=== PATIENT | male | born 1955 | race African-American/Black ===

== ENCOUNTER 2018-11-03 12:01 | Emergency (ER) | payer OTHER, MEDICARE ==
[2018-11-03] MEDS ORDERED: LIDOCAINE 2% VISCOUS SOLN 20 ML UDCUP PO ONE (13:08)
[2018-11-03] MEDS ORDERED: METOCLOPRAMIDE HCL ORAL SOLN 10 MG/10 ML UDCUP PO ONE (13:08)
[2018-11-03] MEDS ORDERED: MAG HYDROX/AL HYDROX/SIMETH SUSP 30 ML UDCUP PO ONE (13:08)
--- NOTE | 2018-11-03 13:14 | ER Document Report ---
ED General - General Chief Complaint: Abdominal Pain Stated Complaint: ABDOMINAL PAIN Time Seen by Provider: 11/03/18 13:03 Mode of Arrival: Ambulatory Information source: Patient Notes: 63-year-old male with hypertension, hyperlipidemia, type 1 diabetes, chronic back pain presents with epigastric and right upper quadrant abdominal pain that started 3 days prior to arrival. Patient currently is pain-free. Patient describes the pain is intermittent, spasm-like. Patient denies associated nausea, vomiting, chest pain, diaphoresis, shortness of breath. He denies any black or bloody stools. His last bowel movement was this morning. He denies any abdominal surgeries. He is having flatus. Patient was sent here from the [place] to assess for cholecystitis. TRAVEL OUTSIDE OF THE [place] IN LAST 30 DAYS: No - HPI Onset: Other Onset/Duration: Intermittent Quality of pain: No pain, Other - Spasm Associated symptoms: denies: Chest pain, Diarrhea, Fever, Nausea, Vomiting, Shortness of breath Exacerbated by: Food Relieved by: Denies Similar symptoms previously: No Recently seen / treated by doctor: Yes - [place] today - Related Data Allergies/Adverse Reactions: No Known Allergies Allergy (Verified 11/03/18 12:03) Past Medical History - General Information source: Patient, Relative, [facility] Records - Social History Smoking Status: Current Every Day Smoker Cigarette use (# per day): Yes - 5 Chew tobacco use (# tins/day): Yes Smoking Education Provided: Yes - Smoking cessation counseling was provided for 4 minutes at the bedside Frequency of alcohol use: Rare Drug Abuse: None Lives with: Spouse/Significant other Family History: Reviewed & Not Pertinent Patient has suicidal ideation: No Patient has homicidal ideation: No - Past Medical History Cardiac Medical History: Reports: Hx Hypercholesterolemia, Hx Hypertension Endocrine Medical History: Reports: Hx Diabetes Mellitus Type 1, Hx Diabetes Mellitus Type 2 Renal/ Medical History: Denies: Hx Peritoneal Dialysis Psychiatric Medical History: Reports: Hx Depression Past Surgical History: Reports: Hx Orthopedic Surgery - cervical - Immunizations Hx Diphtheria, Pertussis, Tetanus Vaccination: No Review of Systems - Review of Systems Notes: REVIEW OF SYSTEMS: CONSTITUTIONAL : Denies fever, chills, or sweats. Denies recent illness. Denies weight loss, recent hospitalizations. EENT: Denies visual changes, eye pain. Denies sore throat, oral lesions, difficulty swallowing. CARDIOVASCULAR: Denies chest pain. Denies palpitations. Denies lower extremity edema. RESPIRATORY: Denies cough. Denies shortness of breath, wheezing. GASTROINTESTINAL: Denies nausea, vomiting, or diarrhea. Denies blood in vomitus, stools, or per rectum. Denies black, tarry stools. Denies constipation. GENITOURINARY: Denies difficulty urinating, painful urination, frequency, blood in urine, testicular pain or penile discharge. MUSCULOSKELETAL: Denies back or neck pain or stiffness. Denies joint pain or swelling. SKIN: Denies rash, lesions or sores. HEMATOLOGIC : Denies easy bruising or bleeding. LYMPHATIC: Denies swollen glands. NEUROLOGICAL: Denies confusion or altered mental status. Denies loss of consciousness. Denies dizziness or lightheadedness. Denies headache. Denies weakness or paralysis. Denies problems difficulty with ambulation, slurred speech. Denies sensory loss, numbness, or tingling. Denies seizures. PSYCHIATRIC: Denies anxiety or stress. Denies depression, suicidal ideation, or Physical Exam - Vital signs Vitals: Temp Pulse Resp BP Pulse Ox 98.2 F 70 18 165/99 H 96 11/03/18 12:36 11/03/18 12:36 11/03/18 12:36 11/03/18 12:36 11/03/18 12:36 - Notes Notes: PHYSICAL EXAMINATION: GENERAL: Well-appearing, well-nourished and in no acute distress. HEAD: Atraumatic, normocephalic. EYES: Pupils equal round and reactive to light, extraocular movements intact, sclera anicteric, conjunctiva are normal. ENT: Nares patent, oropharynx clear without exudates. Moist mucous membranes. NECK: Normal range of motion, supple without lymphadenopathy LUNGS: Breath sounds clear to auscultation bilaterally and equal. No wheezes rales or rhonchi. HEART: Regular rate and rhythm without murmurs ABDOMEN: Soft, nontender, nondistended abdomen. No guarding, no rebound. No masses appreciated. Musculoskeletal: Normal range of motion, no pitting or edema. No cyanosis. NEUROLOGICAL: Cranial nerves grossly intact. Normal speech, normal gait. Normal sensory, motor exams PSYCH: Normal mood, normal affect. SKIN: Warm, Dry, normal turgor, no rashes or lesions noted. Course - Re-evaluation Re-evalutation: Laboratory 11/03/18 11/03/18 13:38 13:38 WBC 9.1 RBC 4.75 Hgb 14.4 Hct 41.9 MCV 88 MCH 30.3 MCHC 34.4 RDW 14.7 H Plt Count 220 Seg Neutrophils % 64.2 Lymphocytes % 24.5 Monocytes % 8.4 Eosinophils % 1.6 Basophils % 1.3 Absolute Neutrophils 5.8 Absolute Lymphocytes 2.2 Absolute Monocytes 0.8 Absolute Eosinophils 0.1 Absolute Basophils 0.1 Sodium 141.9 Potassium 3.8 Chloride 105 Carbon Dioxide 30 Anion Gap 7 BUN 18 Creatinine 1.67 H Est GFR ( Amer) 50 L Est GFR (Non-Af Amer) 42 L Glucose 163 H Calcium 9.1 Total Bilirubin 0.7 Direct Bilirubin 0.4 Neonat Total Bilirubin Not Reportable Neonat Direct Bilirubin Not Reportable Neonat Indirect Bili Not Reportable AST 24 ALT 20 L Alkaline Phosphatase 90 Total Protein 7.7 Albumin 4.2 Lipase 65.7 Abdomen Ultrasound 11/03/18 13:08 IMPRESSION: 1. FAINT SLUDGE IN THE GALLBLADDER. 2. FATTY INFILTRATION OF THE LIVER. NO OTHER SIGNIFICANT FINDING IN THE VISUALIZED ABDOMEN. Temp Pulse Resp BP Pulse Ox 98.0 F 79 18 152/83 H 100 11/03/18 15:04 11/03/18 15:04 11/03/18 15:04 11/03/18 15:04 11/03/18 15:04 11/03/18 15:23 Patient reports improvement of symptoms with GI cocktail. 11/03/18 20:22 63-year-old male presented from his primary care physician's office with concern for cholecystitis. Patient reports intermittent abdominal spasms. Vital signs reviewed and within normal limits upon arrival except for a mildly elevated blood pressure. CBC is without leukocytosis or anemia. CMP shows hyperglycemia without evidence of DKA and renal insufficiency with a creatinine of 1.67 which [facility]. Right upper quadrant ultrasound significant for sludge. Patient's spasms are likely biliary colic. Findings discussed with patient and his . Advised that patient does not need emergent cholecystectomy but that this may continue to bother him and he may decide to electively remove. Diet discussed. Patient was evaluated and treated as appropriate for the patient's presenting symptoms and complaint, with consideration of any critical or life threatening conditions that may be associated with their obtained history and exam as noted above. All results were discussed with patient and his . Patient provided the opportunity to ask questions, and express concerns. Patient was educated on treatments based on their presumed diagnosis as noted above. At this time we will discharge the patient with return precautions and follow-up recommendations. Verbal discharge instructions given a the bedside. Medication warnings reviewed. Patient is in agreement with this plan and has verbalized understanding of return precautions. After careful consideration I feel that that patient can be safely discharged from the emergency department, they were advised to followup with a primary care physician in 2-3 days. Dictation on this chart was performed using voice recognition software and may result in unintended grammatical, spelling, syntax or errors. 11/03/18 20:24 11/03/18 20:30 - Vital Signs Vital signs: Temp Pulse Resp BP Pulse Ox 98.0 F 79 18 152/83 H 100 11/03/18 15:04 11/03/18 15:04 11/03/18 15:04 11/03/18 15:04 11/03/18 15:04 - Laboratory Result Diagrams: 11/03/18 13:38 11/03/18 13:38 Laboratory results interpreted by me: 11/03/18 11/03/18 13:38 13:38 RDW 14.7 H Creatinine 1.67 H Est GFR ( Amer) 50 L Est GFR (Non-Af Amer) 42 L Glucose 163 H ALT 20 L - Diagnostic Test Radiology reviewed: Image reviewed, Reports reviewed - EKG Interpretation by Me EKG shows normal: Sinus rhythm Rate: Normal Rhythm: NSR Voltage: Consistant with LVH When compared to previous EKG there are: No significant change Discharge - Discharge Clinical Impression: Sludge in gallbladder, Renal insufficiency, Fatty liver, Biliary colic Abdominal pain Qualifiers: Abdominal location: epigastric Qualified Code(s): R10.13 - Epigastric pain Condition: Good Disposition: HOME, SELF-CARE Instructions: Abdominal Pain ([facility]), Gallbladder Disease ([facility]), Kidney Function Abnormality ([facility]), Colic ([facility]) Additional Instructions: You were seen for pain in your abdomen that is likely related to sludge in your gallbladder. Your work-up today does not show any signs that you need to have your gallbladder removed tonight. However, you will likely need surgery as an outpatient in the coming weeks. Please contact the surgery clinic in the next 24 -48 hours to discuss the need for further evaluation and consideration of surgery. Return to the ED immediately if you develop worsening pain, persistent vomiting, become unable to tolerate fluids, have a fever of >1004, or any other symptoms that are concerning to you. Prescriptions: Sucralfate [Carafate 1 gm Tablet] 1 gm PO ACHS #30 tablet Forms: Elevated Blood Pressure Referrals: MILLY KEANE MD [ACTIVE STAFF] - Follow up as needed
[2018-11-03 13:51] LABS: ABSOLUTE BASOPHILS # (AUTO) 0.1 10^3/uL (0.0-0.2); ABSOLUTE EOSINOPHILS # (AUTO) 0.1 10^3/uL (0.0-0.6); ABSOLUTE LYMPHOCYTES (AUTO) 2.2 10^3/uL (0.5-4.7); ABSOLUTE MONOCYTES (AUTO) 0.8 10^3/uL (0.1-1.4); ABSOLUTE NEUT (AUTO) 5.8 10^3/uL (1.7-8.2); BASOPHILS % (AUTO) 1.3 % (0-2); EOSINOPHILS % (AUTO) 1.6 % (0-6); HEMATOCRIT 41.9 % (37.9-51.0); HEMOGLOBIN 14.4 g/dL (13.5-17.0); LYMPHOCYTES % (AUTO) 24.5 % (13-45); MEAN CORPUSCULAR HEMOGLOBIN 30.3 pg (27.0-33.4); MEAN CORPUSCULAR HGB CONC 34.4 g/dL (32.0-36.0); MEAN CORPUSCULAR VOLUME 88 fl (80-97); MONOCYTES % (AUTO) 8.4 % (3-13); PLATELET COUNT 220 10^3/uL (150-450); RED BLOOD COUNT 4.75 10^6/uL (4.35-5.55); RED CELL DISTRIBUTION WIDTH 14.7 % (11.5-14.0); SEGMENTED NEUTROPHILS % (AUTO) 64.2 % (42-78); TOTAL CELLS COUNTED % (AUTO) 100 %; WHITE BLOOD COUNT 9.1 10^3/uL (4.0-10.5)
[2018-11-03 14:04] LABS: ALANINE AMINOTRANSFERASE 20 U/L (21-72); ALBUMIN 4.2 g/dL (3.5-5.0); ALKALINE PHOSPHATASE 90 U/L (38-126); ANION GAP 7 (5-19); ASPARTATE AMINO TRANSFERASE 24 U/L (17-59); BILIRUBIN,DIRECT 0.4 mg/dL (0.0-0.4); BILIRUBIN,TOTAL 0.7 mg/dL (0.2-1.3); BLOOD UREA NITROGEN 18 mg/dL (7-20); CALCIUM 9.1 mg/dL (8.4-10.2); CARBON DIOXIDE 30 mmol/L (22-30); CHLORIDE 105 mmol/L (98-107); GLUCOSE 163 mg/dL (75-110); LIPASE 65.7 U/L (23-300); POTASSIUM 3.8 mmol/L (3.6-5.0); SODIUM 141.9 mmol/L (137-145); TOTAL PROTEIN 7.7 g/dL (6.3-8.2)
[2018-11-03] MEDS ORDERED: RINGERS SOLUTION,LACTATED 1,000 ML IV ONE (14:18)
[2018-11-03] MEDS ORDERED: NORMAL SALINE 1000 ML 1,000 ML IV ONE (14:21)
--- NOTE | 2018-11-03 14:53 | RADIOLOGY REPORT (SQ) ---
EXAM DESCRIPTION: U/S ABDOMEN LIMITED W/O DOP COMPLETED DATE/TIME: 11/03/2018 2:07 pm REASON FOR STUDY: Right upper quadrant abdominal pain COMPARISON: None. TECHNIQUE: Dynamic and static grayscale images acquired of the abdomen and recorded on PACS. Additio nal selected color Doppler and spectral images recorded. Note: Exam does not meet criteria for a complete doppler/duplex scan LIMITATIONS: Study limited due to acoustical interference from fat or from air in the bowel. FINDINGS: PANCREAS: Poorly seen secondary to acoustical interference from fat or from air in the bow el. No visualized masses. Duct normal caliber as seen. LIVER: Echotexture is coarse with increased echogenicity consistent with fatty infiltration. LIVER VASCULATURE: Normal directional flow of the main portal vein and hepatic veins. GALLBLADDER: Faint sludge. Normal wall thickness. No pericholecystic fluid. ULTRASOUND-DETECTED MA'S SIGN: Negative. INTRAHEPATIC DUCTS AND COMMON DUCT: CBD and intrahepatic ducts normal caliber. No filling defects. INFERIOR VENA CAVA: Normal flow. AORTA: No aneurysm. RIGHT KIDNEY: Normal size. Normal echogenicity. No solid or suspicious masses. No hydronephrosis. No calcifications. PERITONEAL AND PLEURAL SPACES: No ascites or effusions. OTHER: No other significant finding. IMPRESSION: 1. FAINT SLUDGE IN THE GALLBLADDER. 2. FATTY INFILTRATION OF THE LIVER. NO OTHER SIGNIFICANT FINDING IN THE VISUALIZED ABDOMEN. TECHNICAL DOCUMENTATION: JOB ID: [id number] [employer]- All Rights Reserved Reading location - IP/workstation name: [email or web address]
[2018-11-03 15:05] VITALS: BP 152/83
--- NOTE | 2018-11-03 18:50 | EKG REPORT ---
SEVERITY:- ABNORMAL ECG - SINUS RHYTHM LVH WITH SECONDARY REPOLARIZATION ABNORMALITY : Confirmed by: Fabian Torres MD 03-Nov-2018 18:49:27
== END 2018-11-03 15:31 | disposition home or self-care (01) ==
LOC: ER 12:01
DX: K80.50 Calculus of bile duct without cholangitis or cholecystitis without obstruction (principal); K82.8 Other specified diseases of gallbladder; K76.0 Fatty (change of) liver, not elsewhere classified; R10.13 Epigastric pain; R10.11 Right upper quadrant pain; E10.65 Type 1 diabetes mellitus with hyperglycemia; N28.9 Disorder of kidney and ureter, unspecified; I10 Essential (primary) hypertension; F17.210 Nicotine dependence, cigarettes, uncomplicated; Z71.6 Tobacco abuse counseling
CPT/HCPCS: 93005; 99406; 99284; 36415; 83690; 85025; 80053; 76705; 93010; J3490

== ENCOUNTER 2018-11-26 10:04 | Emergency (ER) | payer OTHER, MEDICARE ==
[2018-11-26] MEDS ORDERED: KETOROLAC TROMETHAMINE INJ/PF 30 MG/1 ML SDV IV ONE (10:40)
--- NOTE | 2018-11-26 10:42 | ER Document Report ---
ED Medical Screen (RME) - General Chief Complaint: Abdominal Pain Stated Complaint: ABDOMINAL PAIN Time Seen by Provider: 11/26/18 10:35 Notes: 63 years old male with a history of kidney stones, gallstone, chronic constipations presents today with diffuse abdominal pain for the last 2 days. Which is more than usual. No fever chills nausea vomiting diarrhea dysuria frequency. Distention of the abdomen and diffuse mild to moderate tenderness noted. TRAVEL OUTSIDE OF THE [place] IN LAST 30 DAYS: No - Related Data Allergies/Adverse Reactions: No Known Allergies Allergy (Verified 11/26/18 10:06) Past Medical History - Social History Chew tobacco use (# tins/day): No Frequency of alcohol use: Occasional Drug Abuse: None - Past Medical History Cardiac Medical History: Reports: Hx Hypercholesterolemia, Hx Hypertension Endocrine Medical History: Reports: Hx Diabetes Mellitus Type 1, Hx Diabetes Mellitus Type 2 Renal/ Medical History: Denies: Hx Peritoneal Dialysis Psychiatric Medical History: Reports: Hx Depression Past Surgical History: Reports: Hx Orthopedic Surgery - cervical - Immunizations Hx Diphtheria, Pertussis, Tetanus Vaccination: No Physical Exam - Vital signs Vitals: Temp Pulse Resp BP Pulse Ox 98.5 F 80 16 163/79 H 97 11/26/18 10:20 11/26/18 10:20 11/26/18 10:20 11/26/18 10:20 11/26/18 10:20 Course - Vital Signs Vital signs: Temp Pulse Resp BP Pulse Ox 98.5 F 80 16 163/79 H 97 11/26/18 10:20 11/26/18 10:20 11/26/18 10:20 11/26/18 10:20 11/26/18 10:20
--- NOTE | 2018-11-26 11:19 | RADIOLOGY REPORT (SQ) ---
EXAM DESCRIPTION: ACUTE ABDOMEN SERIES COMPLETED DATE/TIME: 11/26/2018 11:05 am REASON FOR STUDY: Abdominal pain/history of gallstones COMPARISON: 11/03/2018 NUMBER OF VIEWS: Three views. TECHNIQUE: Frontal chest, supine abdomen and upright/decubitus abdomen radiographic images acquired. LIMITATIONS: None. FINDINGS: CHEST: Lungs clear of infiltrates. FREE AIR: None. No abnormal gas collections. BOWEL GAS PATTERN: Nonobstructive pattern. No dilated loops or air fluid levels. CALCIFICATIONS: No suspicious calcifications. HARDWARE: Cervical fusion hardware. SOFT TISSUES: No gross mass or suggestion of organomegaly. BONES: Mild lower lumbar degenerative change. OTHER: No other significant finding. IMPRESSION: NO RADIOGRAPHIC EVIDENCE FOR ACUTE ABDOMINAL DISEASE. TECHNICAL DOCUMENTATION: JOB ID: [id number] [employer]- All Rights Reserved Reading location - IP/workstation name: [email or web address]
--- NOTE | 2018-11-26 12:01 | RADIOLOGY REPORT (SQ) ---
EXAM DESCRIPTION: U/S ABDOMEN LIMITED W/O DOP COMPLETED DATE/TIME: 11/26/2018 11:23 am REASON FOR STUDY: Abdominal pain/history of gallstones COMPARISON: 11/03/2018 TECHNIQUE: Dynamic and static grayscale images acquired of the abdomen and recorded on PACS. Micko isaura selected color Doppler and spectral images recorded. LIMITATIONS: None. FINDINGS: PANCREAS: No masses. Visualized pancreatic duct normal caliber. LIVER: No masses. Echotexture normal. LIVER VASCULATURE: Normal directional flow of the main portal vein and hepatic veins. GALLBLADDER: No stones identified. Normal wall thickness. No pericholecystic fluid. ULTRASOUND-DETECTED MA'S SIGN: Negative. INTRAHEPATIC DUCTS AND COMMON DUCT: CBD and intrahepatic ducts normal caliber. No filling defects. INFERIOR VENA CAVA: Normal flow. AORTA: No aneurysm. RIGHT KIDNEY: Normal size and echogenicity. No solid suspicious masses. 8 mm nonobstructing calcif ication. PERITONEAL AND RIGHT PLEURAL SPACE: No ascites or effusions. OTHER: No other significant findings. IMPRESSION: NORMAL RIGHT UPPER QUADRANT ULTRASOUND. COMMENT: No evidence of cholelithiasis or acute cholecystitis. Nonobstructing 8 mm right renal stone. Otherwise, unremarkable right upper quadrant ultrasound. TECHNICAL DOCUMENTATION: JOB ID: [id number] [employer]- All Rights Reserved Reading location - IP/workstation name: [email or web address]
[2018-11-26 12:30] LABS: ABSOLUTE BASOPHILS # (AUTO) 0.1 10^3/uL (0.0-0.2); ABSOLUTE EOSINOPHILS # (AUTO) 0.2 10^3/uL (0.0-0.6); ABSOLUTE LYMPHOCYTES (AUTO) 2.8 10^3/uL (0.5-4.7); ABSOLUTE MONOCYTES (AUTO) 0.8 10^3/uL (0.1-1.4); ABSOLUTE NEUT (AUTO) 4.5 10^3/uL (1.7-8.2); BASOPHILS % (AUTO) 0.6 % (0-2); HEMATOCRIT 41.6 % (37.9-51.0); HEMOGLOBIN 14.1 g/dL (13.5-17.0); LYMPHOCYTES % (AUTO) 33.5 % (13-45); MEAN CORPUSCULAR HEMOGLOBIN 30.3 pg (27.0-33.4); MEAN CORPUSCULAR HGB CONC 33.8 g/dL (32.0-36.0); MEAN CORPUSCULAR VOLUME 90 fl (80-97); MONOCYTES % (AUTO) 9.5 % (3-13); PLATELET COUNT 214 10^3/uL (150-450); RED BLOOD COUNT 4.65 10^6/uL (4.35-5.55); RED CELL DISTRIBUTION WIDTH 14.4 % (11.5-14.0); SEGMENTED NEUTROPHILS % (AUTO) 54.4 % (42-78); TOTAL CELLS COUNTED % (AUTO) 100 %; WHITE BLOOD COUNT 8.3 10^3/uL (4.0-10.5)
[2018-11-26 12:48] LABS: APPEARANCE,URINE CLEAR; BILIRUBIN,URINE NEGATIVE (NEGATIVE); COLOR,URINE YELLOW; GLUCOSE, URINE NEGATIVE (NEGATIVE); KETONES,URINE NEGATIVE (NEGATIVE); LEUKOCYTE ESTERASE,URINE NEGATIVE (NEGATIVE); NITRITE,URINE NEGATIVE (NEGATIVE); PROTEIN,URINE 30 mg/dL (NEGATIVE); URINE SPECIFIC GRAVITY 1.023; UROBILINOGEN,URINE NEGATIVE mg/dL (<2.0)
[2018-11-26 12:53] LABS: ALANINE AMINOTRANSFERASE 15 U/L (21-72); ALBUMIN 4.5 g/dL (3.5-5.0); ALKALINE PHOSPHATASE 74 U/L (38-126); ANION GAP 8 (5-19); ASPARTATE AMINO TRANSFERASE 16 U/L (17-59); BILIRUBIN,DIRECT 0.2 mg/dL (0.0-0.4); BILIRUBIN,TOTAL 0.5 mg/dL (0.2-1.3); BLOOD UREA NITROGEN 20 mg/dL (7-20); CALCIUM 9.4 mg/dL (8.4-10.2); CARBON DIOXIDE 31 mmol/L (22-30); CHLORIDE 103 mmol/L (98-107); GLUCOSE 67 mg/dL (75-110); LIPASE 67.5 U/L (23-300); POTASSIUM 3.8 mmol/L (3.6-5.0); SODIUM 141.7 mmol/L (137-145); TOTAL PROTEIN 7.6 g/dL (6.3-8.2)
--- NOTE | 2018-11-26 13:01 | ER Document Report ---
ED General - General Chief Complaint: Abdominal Pain Stated Complaint: ABDOMINAL PAIN Time Seen by Provider: 11/26/18 10:35 TRAVEL OUTSIDE OF THE [place] IN LAST 30 DAYS: No - HPI Notes: Patient is a 63-year-old male with a history of hypertension, hyperlipidemia, type 1 diabetes, chronic back pain who presents to the emergency department complaining of abdominal distention and intermittent epigastric abdominal pain that is been a chronic issue over the last couple months. Patient states that he usually does feel symptoms at night. Patient states that he does not have any pain at this time. He was told previously that he may need his gallbladder taken out. He is able to eat and drink without any worsening symptoms. Patient states that he does feel "gassy." Patient's last bowel movement was this morning but was hard and small. Patient states that he feels constipated as well and has had issues with this as he is on pain medicines. Patient states that he has not had a good bowel movement in several days. He is urinating normally otherwise. No other concerns or complaints. Denies any headache, fever, neck pain, URI, sore throat, chest pain, palpitations, syncope, cough, shortness of breath, wheeze, dyspnea, nausea/vomiting/diarrhea, urinary retention, dysuria, hematuria, loss of control of bowel or bladder, numbness/tingling, saddle anesthesia, muscle paralysis/weakness, or rash. - Related Data Allergies/Adverse Reactions: No Known Allergies Allergy (Verified 11/26/18 10:06) Past Medical History - Social History Smoking Status: Never Smoker Chew tobacco use (# tins/day): No Frequency of alcohol use: Occasional Drug Abuse: None Family History: Reviewed & Not Pertinent Patient has suicidal ideation: No Patient has homicidal ideation: No - Past Medical History Cardiac Medical History: Reports: Hx Hypercholesterolemia, Hx Hypertension Endocrine Medical History: Reports: Hx Diabetes Mellitus Type 1, Hx Diabetes Mellitus Type 2 Renal/ Medical History: Denies: Hx Peritoneal Dialysis Psychiatric Medical History: Reports: Hx Depression Past Surgical History: Reports: Hx Orthopedic Surgery - cervical - Immunizations Hx Diphtheria, Pertussis, Tetanus Vaccination: No Review of Systems - Review of Systems -: Yes All other systems reviewed and negative Physical Exam - Vital signs Vitals: Temp Pulse Resp BP Pulse Ox 98.5 F 80 16 163/79 H 97 11/26/18 10:20 11/26/18 10:20 11/26/18 10:20 11/26/18 10:20 11/26/18 10:20 - Notes Notes: PHYSICAL EXAMINATION: GENERAL: Well-appearing, well-nourished and in no acute distress. HEAD: Atraumatic, normocephalic. EYES: Pupils equal round and reactive to light, extraocular movements intact, sclera anicteric, conjunctiva are normal. ENT: EAC clear b/l. TM's intact b/l without erythema, fluid, or perforation. Nares patent and without discharge. oropharynx clear without exudates. No tonsilar hypertrophy or erythema. Moist mucous membranes. No sinus tenderness. NECK: Normal range of motion, supple without lymphadenopathy LUNGS: Breath sounds clear to auscultation bilaterally and equal. No wheezes rales or rhonchi. HEART: Regular rate and rhythm without murmurs, rubs, gallops. ABDOMEN: Soft, nontender, with slight distention to the abdomen. No guarding, no rebound. Normal bowel sounds present. No CVA tenderness bilaterally. Mcguire negative. No tenderness at McBurney. Musculoskeletal: FROM to passive/active. Strength 5+/5. Extremities: No cyanosis, clubbing, or edema b/l. Peripheral pulses 2+. Capillary refill less than 3 seconds. NEUROLOGICAL: Cranial nerves grossly intact. Normal speech, normal gait. Normal sensory, motor exams PSYCH: Normal mood, normal affect. SKIN: Warm, Dry, normal turgor, no rashes or lesions noted. Course - Re-evaluation Re-evalutation: 11/26/18 13:45 Patient is an afebrile, well-hydrated, 63-year-old male who presents to the emergency department with abdominal pain unspecified, suspect relation to constipation. Patient has been asymptomatic since prior to my evaluation. Vitals are acceptable without any significant tachycardia, tachypnea, or hypoxia. PE is otherwise unremarkable. Patient's abdomen is soft and nontender at this time. Lungs are clear to auscultation bilaterally. CBC, CMP, lipase, ultrasound, and KUB are grossly unremarkable for acute pathology aside from the noted constipation and glucose at 67 which pt was then given food/drink for. New accucheck now 92. Patient is nontoxic-appearing and is tolerating p.o. wi thout difficulty. No further labs or imaging warranted at this time. Low suspicion/risk for acute appendicitis, bowel obstruction, acute cholecystitis, perforated diverticulitis, incarcerated hernia, pancreatitis, perforated ulcer, peritonitis, sepsis, testicular torsion, or other systemic emergent condition at this time. Patient is aware that his condition can change from initial presentation and he needs to monitor symptoms closely and seek medical attention if any acute changes. I will send him home with a prescription for mag citrate as patient declined wanting his constipation evacuated in the emergency department. Conservative measures otherwise for symptoms. Recheck with PCM in 2-3 days. Consider consult with a die cutter. Return to the ED with any worsening/concerning symptoms otherwise as reviewed in discharge. Patient is in agreement. - Vital Signs Vital signs: Temp Pulse Resp BP Pulse Ox 98.5 F 80 16 163/79 H 97 11/26/18 10:20 11/26/18 10:20 11/26/18 10:20 11/26/18 10:20 11/26/18 10:20 - Laboratory Result Diagrams: 11/26/18 12:01 11/26/18 12:01 Laboratory results interpreted by me: 11/26/18 11/26/18 11/26/18 12:01 12:01 12:01 RDW 14.4 H Carbon Dioxide 31 H Creatinine 1.66 H Est GFR ( Amer) 51 L Est GFR (Non-Af Amer) 42 L Glucose 67 L AST 16 L ALT 15 L Urine Protein 30 H Discharge - Discharge Clinical Impression: Abdominal pain Qualifiers: Abdominal location: upper abdomen, unspecified Qualified Code(s): R10.10 - Upper abdominal pain, unspecified Constipation Qualifiers: Constipation type: unspecified constipation type Qualified Code(s): K59.00 - Constipation, unspecified Condition: Stable Disposition: HOME, SELF-CARE Instructions: Abdominal Pain ([facility]), Constipation ([facility]) Additional Instructions: Maintain adequate fluid and food intake healthy diet. High fiber/water intake Magnesium Citrate as directed then stool softener daily thereafter until your follow-up Monitor for any worsening symptoms Make sure you are staying hydrated enough to urinate and have normal BM's Recheck with your PCM in 2-3 days Consider consult with general surgery to discuss your gallbladder, but labs/imaging today do not suggest this as your immediate etiology for pain Consider consult with Gastroenterology for ongoing/worsening symptoms Return to the ED with any worsening symptoms and/or development of fever, headache, chest pain, palpitations, syncope, shortness of breath, trouble breathing, abdominal pain, n/v/d, blood in stool/urine, weakness, or other worsening symptoms that are concerning to you. Prescriptions: Magnesium Citrate [Citrate of Magnesia 296 ml Bottle] 296 ml PO ONCE PRN #1 bottle PRN Reason: Forms: Elevated Blood Pressure Referrals: MILLY KEANE MD [ACTIVE STAFF] - Follow up as needed
[2018-11-26 13:58] VITALS: BP 163/93
== END 2018-11-26 13:58 | disposition home or self-care (01) ==
LOC: ER 10:04
DX: K59.00 Constipation, unspecified (principal); R10.13 Epigastric pain; G89.29 Other chronic pain; Z79.899 Other long term (current) drug therapy; E10.9 Type 1 diabetes mellitus without complications; I10 Essential (primary) hypertension
CPT/HCPCS: 99284; 96374; 36415; 82962; 83690; 85025; 80053; 81001; 74022; 76705; J1885

== ENCOUNTER 2020-05-25 12:07 | Emergency (ER) | payer OTHER, MEDICARE ==
--- NOTE | 2020-05-25 12:47 | ER Document Report ---
ED Medical Screen (RME) - General Chief Complaint: Abdominal Pain Stated Complaint: ABDOMINAL PAIN Time Seen by Provider: 05/25/20 12:34 Mode of Arrival: Ambulatory TRAVEL OUTSIDE OF THE U.S. IN LAST 30 DAYS: No - HPI Notes: 05/25/20 12:42 64 yr old male with a history of hypertension, diabetes who is a poor historian presents emergency room for complaints of stomach pain for the last 3 to 4 days and not having an appetite. Patient states he does not have any nausea vomiting diarrhea, states his last BM was today. Patient is not complaining of any chest pain or shortness of breath. Patient states he just "does not feel good" and this is why he came to the ED. patient states he did not take his blood pressure medication this morning, states his blood sugar this morning was 171. Patient denies any abdominal surgeries, states he does have his appendix and his gallbladder I have greeted and performed a rapid initial assessment of this patient. A comprehensive ED assessment and evaluation of the patient, analysis of test results and completion of the medical decision making process will be conducted by additional ED providers. PHYSICAL EXAMINATION: GENERAL: Well-appearing, well-nourished and in no acute distress. CV: s1, s2 regular LUNGS: No respiratory distress abd: RLQ abd pain palpation, no cva tenderness appreciated bilaterally. Musculoskeletal: Normal range of motion NEUROLOGICAL: Normal speech, normal gait. SKIN: Warm, Dry, normal turgor, no rashes or lesions noted. - Related Data Allergies/Adverse Reactions: No Known Allergies Allergy (Verified 11/26/18 10:06) Past Medical History - Social History Chew tobacco use (# tins/day): Yes Frequency of alcohol use: Rare Drug Abuse: None - Past Medical History Cardiac Medical History: Reports: Hx Hypercholesterolemia, Hx Hypertension Endocrine Medical History: Reports: Hx Diabetes Mellitus Type 1, Hx Diabetes Mellitus Type 2 Renal/ Medical History: Denies: Hx Peritoneal Dialysis Psychiatric Medical History: Reports: Hx Depression Past Surgical History: Reports: Hx Orthopedic Surgery - cervical - Immunizations Hx Diphtheria, Pertussis, Tetanus Vaccination: No Physical Exam - Vital signs Vitals: Temp Pulse Resp BP Pulse Ox 99.3 F 85 18 167/80 H 94 05/25/20 12:12 05/25/20 12:12 05/25/20 12:12 05/25/20 12:12 05/25/20 12:12 Course - Vital Signs Vital signs: Temp Pulse Resp BP Pulse Ox 99.3 F 85 18 167/80 H 94 05/25/20 12:12 05/25/20 12:12 05/25/20 12:12 05/25/20 12:12 05/25/20 12:12
[2020-05-25 13:54] LABS: APPEARANCE,URINE SLIGHTLY-CLOUDY; BILIRUBIN,URINE NEGATIVE (NEGATIVE); GLUCOSE, URINE >=500 mg/dL (NEGATIVE); KETONES,URINE TRACE mg/dL (NEGATIVE); LEUKOCYTE ESTERASE,URINE NEGATIVE (NEGATIVE); NITRITE,URINE NEGATIVE (NEGATIVE); PROTEIN,URINE 100 mg/dL (NEGATIVE); URINE SPECIFIC GRAVITY 1.027; UROBILINOGEN,URINE NEGATIVE mg/dL (<2.0)
[2020-05-25 13:55] LABS: COLOR,URINE DARK YELLOW
[2020-05-25 13:58] LABS: ABSOLUTE BASOPHILS # (AUTO) 0.1 10^3/uL (0.0-0.2); ABSOLUTE LYMPHOCYTES (AUTO) 1.2 10^3/uL (0.5-4.7); ABSOLUTE MONOCYTES (AUTO) 0.5 10^3/uL (0.1-1.4); ABSOLUTE NEUT (AUTO) 2.6 10^3/uL (1.7-8.2); BASOPHILS % (AUTO) 1.6 % (0-2); EOSINOPHILS % (AUTO) 0.2 % (0-6); HEMATOCRIT 43.7 % (37.9-51.0); HEMOGLOBIN 15.3 g/dL (13.5-17.0); LYMPHOCYTES % (AUTO) 28.1 % (13-45); MEAN CORPUSCULAR HEMOGLOBIN 30.8 pg (27.0-33.4); MEAN CORPUSCULAR VOLUME 88 fl (80-97); MONOCYTES % (AUTO) 12.1 % (3-13); PLATELET COUNT 168 10^3/uL (150-450); RED BLOOD COUNT 4.97 10^6/uL (4.35-5.55); RED CELL DISTRIBUTION WIDTH 13.3 % (11.5-14.0); TOTAL CELLS COUNTED % (AUTO) 100 %; WHITE BLOOD COUNT 4.4 10^3/uL (4.0-10.5)
[2020-05-25 14:18] LABS: ALBUMIN 4.3 g/dL (3.5-5.0); ALKALINE PHOSPHATASE 65 U/L (38-126); ANION GAP 9 (5-19); ASPARTATE AMINO TRANSFERASE 35 U/L (17-59); BILIRUBIN,DIRECT 0.1 mg/dL (0.0-0.4); BILIRUBIN,TOTAL 0.8 mg/dL (0.2-1.3); BLOOD UREA NITROGEN 17 mg/dL (7-20); CALCIUM 9.3 mg/dL (8.4-10.2); CARBON DIOXIDE 31 mmol/L (22-30); CHLORIDE 97 mmol/L (98-107); GLUCOSE 122 mg/dL (75-110); POTASSIUM 3.9 mmol/L (3.6-5.0); TOTAL PROTEIN 7.9 g/dL (6.3-8.2)
--- NOTE | 2020-05-25 15:20 | RADIOLOGY REPORT (SQ) ---
EXAM DESCRIPTION: CT ABD/PELVIS WITH IV ONLY IMAGES COMPLETED DATE/TIME: 05/25/2020 2:55 pm REASON FOR STUDY: RLQ abd pain, no appetite x 3days COMPARISON: None. TECHNIQUE: CT scan of the abdomen and pelvis performed using helical scanning technique with dynamic intravenous contrast injection. No oral contrast. Images reviewed with lung, soft tissue, and bone windows. Reconstructed coronal and sagittal MPR images reviewed. Delayed images for evaluation of the urinary system also acquired. All images stored on PACS. All CT scanners at this facility use dose modulation, iterative reconstruction, and/or weight based d osing when appropriate to reduce radiation dose to as low as reasonably achievable (ALARA). [facility]: Dose Right [facility]: CareDose [facility]: Dose Right [facility]: Teradose 4D [facility]: [employer] CONTRAST TYPE AND DOSE: contrast/concentration: Isovue 300.00 mmol/ml; Total Contrast Delivered: 100 .0 ml; Total Saline Delivered: 72.0 ml RENAL FUNCTION: Creatinine 1.57 RADIATION DOSE: CT Rad equipment meets quality standard of care and radiation dose reduction techniq ues were employed. CTDIvol: 18.3 - 18.3 mGy. DLP: 1890 mGy-cm.. LIMITATIONS: None. FINDINGS: LOWER CHEST: No significant findings. No nodules or infiltrates. LIVER: Normal size. No masses. No dilated ducts. SPLEEN: Normal size. No focal lesions. PANCREAS: No masses. No significant calcifications. No adjacent inflammation or peripancreatic fluid collections. Pancreatic duct not dilated. GALLBLADDER: No identified stones by CT criteria. No inflammatory changes to suggest cholecystitis. ADRENAL GLANDS: No significant masses or asymmetry. RIGHT KIDNEY AND URETER: No solid masses. No significant calcifications. No hydronephrosis or hyd roureter. LEFT KIDNEY AND URETER: No solid masses. No significant calcifications. No hydronephrosis or hydr oureter. AORTA AND VESSELS: No aneurysm. No dissection. Renal arteries, SMA, celiac without stenosis. RETROPERITONEUM: No retroperitoneal adenopathy, hemorrhage or masses. BOWEL AND PERITONEAL CAVITY: No masses or inflammatory changes. No free fluid or peritoneal masses. Mild nonspecific submucosal fatty deposition within the colon. APPENDIX: Normal. PELVIS: Decompressed urinary bladder with circumferential wall thickening, incompletely evaluated. ABDOMINAL WALL: No masses. No hernias. BONES: No acute bony abnormality. No suspicious osseous lesions. OTHER: No other significant finding. IMPRESSION: 1. Decompressed urinary bladder with circumferential wall thickening, possibly secondar y to decompressed state. Recommend correlation with urinalysis. 2. No other evidence of acute intra-abdominal/pelvic process. Normal appendix. TECHNICAL DOCUMENTATION: JOB ID: [id number] Quality ID # [id number]: Final reports with documentation of one or more dose reduction techniques (e.g., Au tomated exposure control, adjustment of the mA and/or kV according to patient size, use of iterative reconstruction technique) 2010 [employer]- All Rights Reserved Reading location - IP/workstation name: [email or web address]
--- NOTE | 2020-05-25 15:38 | ER Document Report ---
ED General - General Chief Complaint: Abdominal Pain Stated Complaint: ABDOMINAL PAIN Time Seen by Provider: 05/25/20 12:34 Mode of Arrival: Ambulatory TRAVEL OUTSIDE OF THE U.S. IN LAST 30 DAYS: No - HPI Notes: Patient is a 64-year-old gentleman who presents to the emergency department for evaluation of diminished appetite. He is had no fevers or chills. No nausea or vomiting. He had a normal bowel movement this morning, albeit small. He has had no melena or hematochezia. He is urinating normally. No dysuria. On further questioning, the patient's brother is in hospice, being currently in [place], and is dying from cancer. - Related Data Allergies/Adverse Reactions: No Known Allergies Allergy (Verified 11/26/18 10:06) Home Medications: Antihypertensive, metformin which she is currently not taking secondary to recall, insulin Past Medical History - General Information source: Patient - Social History Smoking Status: Never Smoker Chew tobacco use (# tins/day): Yes Frequency of alcohol use: Rare Drug Abuse: None Family History: Reviewed & Not Pertinent - Past Medical History Cardiac Medical History: Reports: Hx Hypercholesterolemia, Hx Hypertension Endocrine Medical History: Reports: Hx Diabetes Mellitus Type 2 Renal/ Medical History: Denies: Hx Peritoneal Dialysis Psychiatric Medical History: Reports: Hx Depression Past Surgical History: Reports: Hx Orthopedic Surgery - cervical - Immunizations Hx Diphtheria, Pertussis, Tetanus Vaccination: No Review of Systems - Review of Systems Constitutional: See HPI Gastrointestinal: See HPI -: Yes All other systems reviewed and negative Physical Exam - Vital signs Vitals: Temp Pulse Resp BP Pulse Ox 99.3 F 85 18 167/80 H 94 05/25/20 12:12 05/25/20 12:12 05/25/20 12:12 05/25/20 12:12 05/25/20 12:12 - Notes Notes: This is a 64-year-old gentleman who appears his stated age. He is extremely soft-spoken with a depressed affect, but does make good eye contact. Vital signs reviewed, please refer to chart. Head is normocephalic, atraumatic. Pupils equal round, reactive to light. Neck is supple without meningismus. Heart is regular rate and rhythm. Lungs are clear to auscultation bilaterally. Abdomen is soft, nontender, normoactive bowel sounds throughout. Extremities without cyanosis, clubbing. Posterior calves are nontender. Peripheral pulses are equal. Skin is warm and dry. Patient is awake, alert, neurological exam is nonfocal. Course - Re-evaluation Re-evalutation: 05/25/20 15:35 Patient presents to the emergency department for evaluation. He has no appetite. His brother is dying, and hospice care. This certainly seems to be an etiology for a diminished appetite. He has no abdominal tenderness. His work-up shows chronic kidney disease, no other acute findings. His CT scan shows a decompressed urinary bladder without any urinary symptoms and a normal urinalysis, with the exception of some protein in glucose. I explained to the patient that this is a normal part of the grieving process. I encouraged him to try and eat small amounts of healthy foods frequently. Talk to his primary care provider. He is to return to the ED with worsening. He is amenable to this plan was discharged. - Vital Signs Vital signs: Temp Pulse Resp BP Pulse Ox 99.3 F 85 18 167/80 H 94 05/25/20 12:12 05/25/20 12:12 05/25/20 12:12 05/25/20 12:12 05/25/20 12:12 - Laboratory Result Diagrams: 05/25/20 13:40 05/25/20 13:40 Laboratory results interpreted by me: 05/25/20 05/25/20 05/25/20 13:00 13:33 13:40 Sodium 136.9 L Chloride 97 L Carbon Dioxide 31 H Creatinine 1.57 H Est GFR ( Amer) 54 L Est GFR (MDRD) Non-Af 45 L Glucose 122 H POC Glucose 137 H Urine Protein 100 H Urine Glucose (UA) >=500 H Urine Ketones TRACE H Urine Blood MODERATE H - Diagnostic Test Radiology reviewed: Reports reviewed Radiology results interpreted by me: 05/25/20 15:36 Abdomen/Pelvis CT 05/25/20 12:40 IMPRESSION: 1. Decompressed urinary bladder with circumferential wall thickening, possibly secondary to decompressed state. Recommend correlation with urinalysis. 2. No other evidence of acute intra-abdominal/pelvic process. Normal appendix. Discharge - Discharge Clinical Impression: Decreased appetite, Grief Condition: Stable Disposition: HOME, SELF-CARE Instructions: Grief Reaction ([facility]) Additional Instructions: It seems likely that your diminished appetite is secondary to your brother's illness. Please try to eat small amounts of healthy foods frequently. If your symptoms persist, discussed with primary care. He may benefit from an antidepressant, or possibly a gastroenterology evaluation. Return to the emergency department for worsening or new concerning symptoms of any sort.
[2020-05-25 15:42] VITALS: BP 152/78
== END 2020-05-25 15:51 | disposition home or self-care (01) ==
LOC: ER 12:07
DX: F43.21 Adjustment disorder with depressed mood (principal); R63.0 Anorexia; R10.9 Unspecified abdominal pain; E78.00 Pure hypercholesterolemia, unspecified; I10 Essential (primary) hypertension; E11.9 Type 2 diabetes mellitus without complications
CPT/HCPCS: 36415; 74177; 80053; 81001; 82962; 83690; 85025; 99284

== ENCOUNTER 2020-05-28 13:02 | Emergency (ER) | payer OTHER, MEDICARE ==
--- NOTE | 2020-05-28 13:59 | RADIOLOGY REPORT (SQ) ---
EXAM DESCRIPTION: CHEST SINGLE VIEW IMAGES COMPLETED DATE/TIME: 05/28/2020 1:48 pm REASON FOR STUDY: bed 8 shotness of breath COMPARISON: Chest radiographs 06/25/2011 EXAM PARAMETERS: NUMBER OF VIEWS: One view. TECHNIQUE: Single frontal radiographic view of the chest acquired. RADIATION DOSE: NA LIMITATIONS: None. FINDINGS: LUNGS AND PLEURA: Mildly low lung volumes. Patchy airspace opacities within the right upp er lung. Consolidation and patchy airspace opacities within the left lower lung. No pleural effusio n or pneumothorax. MEDIASTINUM AND HILAR STRUCTURES: No masses. Contour normal. HEART AND VASCULAR STRUCTURES: Heart normal in size. Normal vasculature. BONES: No acute findings. HARDWARE: None in the chest. OTHER: No other significant finding. IMPRESSION: Right upper and left lower lung airspace opacities concerning for multilobar pneumonia. TECHNICAL DOCUMENTATION: JOB ID: [id number] 2010 [employer]- All Rights Reserved Reading location - IP/workstation name: [email or web address]
[2020-05-28] MEDS ORDERED: NORMAL SALINE 1000 ML 1,000 ML IV ONE (14:12)
[2020-05-28] MEDS ORDERED: AZITHROMYCIN 250 MG TABLET PO ONE (14:12)
[2020-05-28] MEDS ORDERED: CEFTRIAXONE 1 GM/D5W RTU 1 GM/50 ML RTUPB IV ONE (14:12)
--- NOTE | 2020-05-28 14:15 | ER Document Report ---
ED General - General Chief Complaint: Shortness Of Breath Stated Complaint: SHORTNESS OF BREATH,COUGH Time Seen by Provider: 05/28/20 13:40 Primary Care Provider: YEMI ANN [Primary Care Provider] - Follow up as needed TRAVEL OUTSIDE OF THE U.S. IN LAST 30 DAYS: No - HPI Notes: Patient is a 64-year-old male who presents to the emergency department for evaluation of a cough. He actually went over to the respiratory clinic to be tested for COVID. While he was there he complained of his cough. He mentioned he had not had his insulin yet today, so they sent him here to the emergency department for further evaluation. The patient states he has his insulin at home, he just has not taken yet. He denies any known fevers or chills. No nausea or vomiting. He still not eating normally. Is not had a good bowel movement in several days, but attributes this to not eating much. No shaking chills. No pain. - Related Data Allergies/Adverse Reactions: No Known Allergies Allergy (Verified 05/28/20 13:38) Past Medical History - General Information source: Patient - Social History Smoking Status: Former Smoker Chew tobacco use (# tins/day): Yes Family History: Reviewed & Not Pertinent Patient has homicidal ideation: No - Past Medical History Cardiac Medical History: Reports: Hx Hypercholesterolemia, Hx Hypertension Endocrine Medical History: Reports: Hx Diabetes Mellitus Type 2 Renal/ Medical History: Denies: Hx Peritoneal Dialysis Psychiatric Medical History: Reports: Hx Depression Past Surgical History: Reports: Hx Orthopedic Surgery - Immunizations Hx Diphtheria, Pertussis, Tetanus Vaccination: No Review of Systems - Review of Systems Respiratory: See HPI Gastrointestinal: See HPI -: Yes All other systems reviewed and negative Physical Exam - Vital signs Vitals: Temp Pulse Resp BP Pulse Ox 102.4 F H 91 22 H 157/90 H 95 05/28/20 13:17 05/28/20 13:17 05/28/20 13:17 05/28/20 13:17 05/28/20 13:17 - Notes Notes: This is a 64-year-old male who appears his stated age in no acute distress. He is tearful intermittently, particularly when I asked him about his brother, who is in hospice at this time. Vital signs reviewed, please refer to chart. Head is normocephalic, atraumatic. Pupils equal round, reactive to light. Neck is supple without meningismus. Heart is regular rate and rhythm. Lungs reveal diminished breath sounds throughout. Abdomen is soft, nontender, normoactive bowel sounds throughout. Extremities without cyanosis, clubbing. Posterior calves are nontender. Peripheral pulses are equal. Skin is warm and dry. Patient is awake, alert, neurological exam is nonfocal. Course - Re-evaluation Re-evalutation: 05/28/20 15:57 Patient presents to the emergency department for evaluation. Orders placed for protocol, but the patient states he just had a cough and really only wanted to be tested for COVID. I was not notified, however, that the patient's initial temperature was over 102 F. Work-up then ensued. His temperature was elevated, but his white count was normal. His creatinine is near baseline. He has some mild hyponatremia, but again has had depression secondary to his brother being in hospice care. The patient is 98 to 100% on room air. He is breathing 18 times a minute. He has no respiratory distress, no significant shortness of breath. He has no leukocytosis. He is not septic but blood cultures are pending. He is treated with Rocephin here, given oral Zithromax. He tolerated it well. I am inclined to treat him as an outpatient. He already has a COVID test pending per the respiratory clinic. He is told he is a person under investigation, he needs to isolate at home, as well as his , until he is contacted with results. If he develops increasing shortness of breath, or any other new concerning symptoms, he needs to return to the ED, notify them immediately he is a PGY, and seek out further care. Otherwise he needs to follow-up with his primary care provider on Saturday or Saturday. - Vital Signs Vital signs: Temp Pulse Resp BP Pulse Ox 99.6 F 91 22 H 168/107 H 96 05/28/20 14:01 05/28/20 13:17 05/28/20 14:01 05/28/20 14:01 05/28/20 14:01 - Laboratory Result Diagrams: 05/28/20 14:28 05/28/20 14:28 Laboratory results interpreted by me: 05/28/20 05/28/20 05/28/20 14:18 14:28 14:28 Lymph % (Auto) 12.5 L Seg Neutrophils % 78.8 H Sodium 133.8 L Chloride 93 L Creatinine 1.59 H Est GFR ( Amer) 53 L Est GFR (MDRD) Non-Af 44 L Glucose 334 H POC Glucose 351 H Urine Protein Urine Glucose (UA) Urine Ketones Urine Blood 05/28/20 14:52 Lymph % (Auto) Seg Neutrophils % Sodium Chloride Creatinine Est GFR ( Amer) Est GFR (MDRD) Non-Af Glucose POC Glucose Urine Protein 100 H Urine Glucose (UA) >=500 H Urine Ketones 20 H Urine Blood MODERATE H - Diagnostic Test Radiology reviewed: Image reviewed, Reports reviewed Radiology results interpreted by me: 05/28/20 15:58 Chest X-Ray 05/28/20 13:24 IMPRESSION: Right upper and left lower lung airspace opacities concerning for multilobar pneumonia. Discharge - Discharge Clinical Impression: Pneumonia, Hyponatremia, Person under investigation for COVID-19 Condition: Stable Disposition: HOME, SELF-CARE Instructions: Pneumonia ([facility]) Additional Instructions: Your findings today are consistent with pneumonia. You were given a dose of IV antibiotics, and your to start Zithromax tomorrow. You have a COVID test pending from the respiratory clinic. Please self isolate, you and your , until results are given. As discussed, please continue to try and stay well- hydrated, increase your nutrition with small frequent meals.If you develop increasing shortness of breath, chest pain, or any other new or concerning symptoms, please return immediately to the emergency department for evaluation. [facility]errals: [facility] [Primary [facility] Provider] - Follow up as needed
[2020-05-28 14:16] VITALS: BP 168/107
[2020-05-28 15:08] LABS: ABSOLUTE LYMPHOCYTES (AUTO) 0.9 10^3/uL (0.5-4.7); ABSOLUTE MONOCYTES (AUTO) 0.6 10^3/uL (0.1-1.4); ABSOLUTE NEUT (AUTO) 5.7 10^3/uL (1.7-8.2); BASOPHILS % (AUTO) 0.5 % (0-2); EOSINOPHILS % (AUTO) 0.1 % (0-6); HEMOGLOBIN 13.7 g/dL (13.5-17.0); LYMPHOCYTES % (AUTO) 12.5 % (13-45); MEAN CORPUSCULAR HEMOGLOBIN 30.9 pg (27.0-33.4); MEAN CORPUSCULAR HGB CONC 35.2 g/dL (32.0-36.0); MEAN CORPUSCULAR VOLUME 88 fl (80-97); MONOCYTES % (AUTO) 8.1 % (3-13); PLATELET COUNT 166 10^3/uL (150-450); RED BLOOD COUNT 4.44 10^6/uL (4.35-5.55); RED CELL DISTRIBUTION WIDTH 13.3 % (11.5-14.0); SEGMENTED NEUTROPHILS % (AUTO) 78.8 % (42-78); TOTAL CELLS COUNTED % (AUTO) 100 %; WHITE BLOOD COUNT 7.2 10^3/uL (4.0-10.5)
[2020-05-28 15:13] LABS: APPEARANCE,URINE SLIGHTLY-CLOUDY; BILIRUBIN,URINE NEGATIVE (NEGATIVE); COLOR,URINE YELLOW; GLUCOSE, URINE >=500 mg/dL (NEGATIVE); KETONES,URINE 20 mg/dL (NEGATIVE); LEUKOCYTE ESTERASE,URINE NEGATIVE (NEGATIVE); NITRITE,URINE NEGATIVE (NEGATIVE); PROTEIN,URINE 100 mg/dL (NEGATIVE); URINE SPECIFIC GRAVITY 1.029; UROBILINOGEN,URINE NEGATIVE mg/dL (<2.0)
[2020-05-28 15:32] LABS: ALBUMIN 3.6 g/dL (3.5-5.0); ALKALINE PHOSPHATASE 66 U/L (38-126); ANION GAP 12 (5-19); ASPARTATE AMINO TRANSFERASE 32 U/L (17-59); BILIRUBIN,DIRECT 0.1 mg/dL (0.0-0.4); BILIRUBIN,TOTAL 0.8 mg/dL (0.2-1.3); BLOOD UREA NITROGEN 17 mg/dL (7-20); CALCIUM 8.7 mg/dL (8.4-10.2); CARBON DIOXIDE 29 mmol/L (22-30); CHLORIDE 93 mmol/L (98-107); GLUCOSE 334 mg/dL (75-110); POTASSIUM 3.9 mmol/L (3.6-5.0); TOTAL PROTEIN 7.1 g/dL (6.3-8.2)
--- NOTE | 2020-05-28 16:08 | EKG REPORT ---
SEVERITY:- ABNORMAL ECG - SINUS RHYTHM WITH PACS LVH WITH SECONDARY REPOLARIZATION ABNORMALITY NONSPECIFIC INFERIOR ST-T CHANGES : Confirmed by: Fabian Torres MD 28-May-2020 16:07:47
== END 2020-05-28 17:14 | disposition home or self-care (01) ==
LOC: ER 13:02
DX: J18.9 Pneumonia, unspecified organism (principal); E87.1 Hypo-osmolality and hyponatremia; R05 Cough; R19.4 Change in bowel habit; F32.9 Major depressive disorder, single episode, unspecified; I10 Essential (primary) hypertension; E11.9 Type 2 diabetes mellitus without complications; Z79.4 Long term (current) use of insulin; Z87.891 Personal history of nicotine dependence
CPT/HCPCS: 93005; 99284; 96361; 96365; 36415; 87040; 82962; 83605; 85025; 80053; 81001; 84484; 71045; 93010; J7030; J0696

== ENCOUNTER → 2020-05-28 | Outpatient (CLI) | payer OTHER, MEDICARE ==
[2020-05-28 14:38] VITALS: BP 176/89
--- NOTE | 2020-05-28 14:38 | ER RDC ASSESSMENT REPORT ---
Intake - In the Last 14 days Have you traveled outside [place]?: No Have you been in close contact with someone CONFIRMED: No Worked in Healthcare?: No - Symptoms Subjective Fever([place] feverish): Yes Chills: No Muscule Aches: No Runny Nose: No Sore Throat: No Cough (New or worsening chronic cough): Yes Shortness of breath: No Nausea or Vomiting: No Headache: Yes Abdominal Pain: No Diarrhea(3 or more loose stools in last 24 hours): No - Do you have any of the following Chronic lung disease: Asthma or emphysema or COPD: No Cystic Fibrosis: No Diabetes: Yes High Blood Pressure: Yes Cardiovascular Disease: Yes Chronic Kidney Disease: No Chronic Liver Disease: No Chronic blood disorder like Sickle Cell Disease: No Weak immune system due to disease or medication: No Neurologic condition that limits movement: Yes Developmental delay - Moderate to Severe: No Recent (within past 2 weeks) or current : No Morbid Obesity (>100 pounds over ideal weight): No - Objective Temperature: 99.6 F Pulse Rate: 84 Respiratory Rate: 22 Blood Pressure: 176/89 O2 Sat by Pulse Oximetry: 92 Objective: Patient is an ill-appearing 64-year-old male who presents today for COVID-19 screening. Disposition: To ED General - General Stated Complaint: Upper respiratory symptoms Mode of Arrival: Ambulatory Information source: Patient, Relative - Sister Notes: The patient was evaluated during the global COVID-19 pandemic. That diagnosis was suspected/considered upon initial presentation. Their evaluation, treatment, and testing was consistent with current guidelines for patients who present with complaints or symptoms that may be related to COVID-19. - HPI Patient complains to provider of: Upper respiratory symptoms Onset: Other - Unknown onset - patient is confused Onset/Duration: Persistent Quality of pain: No pain Severity: None Pain Level: Denies Associated symptoms: Nonproductive cough, Fever, Headache Exacerbated by: Denies Relieved by: Denies Similar symptoms previously: Yes - Patient recently evaluated and D/C from [facility] ED Recently seen / treated by doctor: Yes - Patient recently evaluated and D/C from [facility] ED - Related Data Allergies/Adverse Reactions: No Known Allergies Allergy (Verified 05/28/20 13:38) Past Medical History - Social History Smoking Status: Never Smoker Cigarette use (# per day): No Chew tobacco use (# tins/day): No Smoking Education Provided: No Frequency of alcohol use: None Drug Abuse: None Occupation: Retired Lives with: Family Family History: Reviewed & Not Pertinent Patient has suicidal ideation: No Patient has homicidal ideation: No - Past Medical History Cardiac Medical History: Reports: Hx Hypercholesterolemia, Hx Hypertension Endocrine Medical History: Reports: Hx Diabetes Mellitus Type 1, Hx Diabetes Mellitus Type 2 Renal/ Medical History: Denies: Hx Peritoneal Dialysis Psychiatric Medical History: Reports: Hx Depression Past Surgical History: Reports: Hx Orthopedic Surgery - cervical Physical Exam - General General appearance: Other - Ill-appearing and confused In distress: Mild Notes: PHYSICAL EXAMINATION: GENERAL: Ill-appearing, mild distress, and confused. HEAD: Atraumatic, normocephalic. EYES: sclera anicteric, conjunctiva are normal. ENT: nares patent. Dry mucous membranes. NECK: Normal range of motion, supple without lymphadenopathy. LUNGS: CTAB and equal. No wheezes rales or rhonchi. HEART: Irregular rate and rhythm without murmurs. EXTREMITIES: Normal range of motion, no pitting edema. No cyanosis. BACK: No midline or CVA tenderness. NEUROLOGICAL: Cranial nerves grossly intact. Normal speech. Unsteady gait and balance. PSYCH: Normal mood, normal affect. SKIN: Warm, Dry, with delayed cap refill, no obvious lesions or rash noted. Diagnostic Results Laboratory Results: Patient advised at this time they are considered a Person Under Investigation (PUI) for the COVID-19 Coronavirus. They have been made aware it is currently taking 3-5 days to receive their results, and [facility] will call to advise them of their result, whether it is POSITIVE or NEGATIVE. Patient Education/Counseling Counseling/Education: Patient presents with upper respiratory symptoms worrisome for possible COVID- 19. Patient has worrisome symptoms, and was referred to the Emergency Department for further evaluation. Patient's vital signs were evaluated prior to C discharge and he was advised to return to the Emergency Department for addition workup. Good return precautions have been discussed with patient, patient verbalized understanding and is agreeable with plan of care at this time. Family is present, and will accompany patient to the Emergency Department. Phone call was made by MARIMAR Junior to advise charge nurse Neil Degroot RN that patient was being sent to the ED. Patient provided COVID-19 discharge instructions to include: As a person under investigation for COVID-19, the [place] department of Health and Human Services, division of public health advises you to adhere to the following guidance until your test results are reported to you. If your test result is positive, you will receive additional information from your provider and your local health department at that time. Remain at home until you are cleared by the health provider or public health authorities. Keep a log of visitors to your home, notify any visitors to your home of your isolation status. If you plan to move to a new address or leave the county, notify the local health department in your County. Call your doctor or seek care if you have an urgent medical need. Before seeking medical care, call ahead to get instructions from the provider before arriving at the medical office clinic or hospital. Notify them that you are being tested for the virus that causes COVID-19 so that arrangements can be made, as necessary, to prevent transmission to others in the healthcare setting. Next, notify the local health department in your county. If a medical emergency arises and you need to call 911, inform dispatch and the first responders that you are being tested for the virus that causes COVID-19. Next, notify the local health department in your county. Guidance for worsening S/SX: For worsening symptoms, patient has been advised to contact their Primary Care Provider, or go to the nearest Emergency Department. RDC Discharge - Discharge Clinical Impression: URI (upper respiratory infection), COVID-19 Screening Condition: Fair Disposition: To ED
== END ==
LOC: EDRDC 12:33 → RDC 12:33
PROVIDERS: ATTEND Nurse Practitioner Family
DX: Z20.828 Contact with and (suspected) exposure to other viral communicable diseases (principal); J06.9 Acute upper respiratory infection, unspecified; R50.9 Fever, unspecified; R05 Cough; R51 Headache; E11.9 Type 2 diabetes mellitus without complications; I10 Essential (primary) hypertension; E78.00 Pure hypercholesterolemia, unspecified
CPT/HCPCS: 87635; C9803; 99201; 99211